=== PATIENT | male | born 1955 | race Caucasian/White ===

== ENCOUNTER 2016-03-25 14:35 | Emergency (ER) | payer SELFPAY ==
[~2016-03-25] VITALS: Ht 188 cm; Wt 90.7 kg
[2016-03-25 15:30] VITALS: BP 125/75
[2016-03-25 16:45] VITALS: BP 139/81
[2016-03-25] MEDS ORDERED: IBUPROFEN600 MG ORAL (16:52)
[2016-03-25 17:05] VITALS: BP 139/81
--- NOTE | 2016-03-25 21:29 | Emergency Room Report ---
History of Present Illness General Chief Complaint: Back Pain-No Injury Source: EMS Present Illness HPI The patient is a 60-year-old male with a history of chronic back pain brought in by ambulance for back pain. The patient states that the pain is an 8/10 dull ache, begins at the mid lower back, and radiates down both legs. The patient also admits to numbness and tingling of both legs. Patient also admits to urinary incontinence. The pt denies any recent injury to the lower back. Pt unsure of diagnosis of the back which is causing the pain. Pt denies N, V, F, chills, SOB, CP Allergies: Coded Allergies: CHLORPHENIRAMINE (Verified Allergy, Unknown, 08/30/15) PENICILLINS (Unverified Allergy, Unknown, 03/25/16) PHENYLPROPANOLAMINE (Verified Allergy, Unknown, 08/30/15) Patient History Past Medical History: see triage record Pertinent Family History: none Reviewed Nursing Documentation: PMH: Agreed, PSxH: Agreed Nursing Documentation-PMH Past Medical History: No Stated History Review of Systems All Other Systems: negative except mentioned in HPI Physical Exam Vital Signs Date Time Temp Pulse Resp B/P Pulse Ox O2 Delivery O2 Flow Rate FiO2 03/25/16 14:32 80 16 135/82 100 Room Air 03/25/16 16:45 97.8 Sp02 EP Interpretation: reviewed, normal General Appearance: no apparent distress, alert, GCS 15, non-toxic Head: normocephalic, atraumatic Eyes: bilateral eye PERRL, bilateral eye normal inspection ENT: hearing grossly normal, normal pharynx, no angioedema, normal voice Musculoskeletal: normal inspection, back normal, digits/nails normal, gait/ station normal, tender - TTP over L mid spine Neurologic: alert, oriented x3, responsive, motor strength/tone normal, sensory intact, speech normal Psychiatric: judgement/insight normal, memory normal, mood/affect normal, no suicidal/homicidal ideation Skin: normal color, no rash, warm/dry, well hydrated Lymphatic: no adenopathy Medical Decision Making PA Attestation Dr. Olson is my supervising physician. Patient management was discussed with my supervising physician Diagnostic Impression: Primary Impression: Chronic back pain ER Course The patient is a 60-year-old male with a history of chronic back pain brought in by ambulance for back pain Ddx considered include but not limited to lumbar strain, degenerative disease, epidural abscess, cauda equina, chronic pain, narcotic dependency. PE: Vitals within normal limits. No apparent distress. Lumbar spine: There is midline tenderness to palpation. No step-offs. Bilateral paraspinal tenderness to palpation. Sensation is intact to sharp sensation. The patient appears to have had urinary incontinence. Slow, but normal gait MRI of the L-spine shows no acute process. The patient is given Motrin and will be discharged home. ER precautions given CT/MRI/US Diagnostic Results CT/MRI/US Diagnostic Results : Imaging Test Ordered: MRI L spine Impression Unremarkable for acute findings. Last Vital Signs Date Time Temp Pulse Resp B/P Pulse Ox O2 Delivery O2 Flow Rate FiO2 03/25/16 17:05 85 20 139/81 99 Room Air 03/25/16 16:45 97.8 Status: improved Disposition: HOME, SELF-CARE Condition: Improved Scripts Ibuprofen* (MOTRIN*) 600 Mg Tablet 600 MG ORAL Q8H Y for For Pain, #30 TAB 0 Refills Prov: EUGENIO TINOCO 03/25/16 Patient Instructions: Back Pain, Adult Additional Instructions: I discussed my findings with the patient. All questions and concerns have been answered. Treatment and medication compliance have been addressed. I advised the patient that they need to follow up with PMD in 3-5 days. Return to ED if pain remains or worsens, numbness or tingling occurs, new rash is noticed, fever is noticed, or if needed for any reason. Patient verbalized understanding of discharge instructions. EUGENIO TINOCO Mar 25, 2016 21:29
--- NOTE | 2016-03-26 12:11 | Diagnostic Imaging Report ---
Indication: Back pain Technique: MRI examination of the Lumbar spine was performed in a 1.5 Kamila magnet. Sequences obtained include sagittal and axial T1 and T2 fast spin echo, and sagittal STIR. No IV gadolinium was given Comparison: none Findings: There is no definite evidence of a fracture or bone marrow contusion. Although heterogeneous bone marrow signal does not show any evidence of a contusion injury or edema. Desiccation of the intervertebral discs noted at multiple locations. Endplate and facet spur formation noted. The distal part of the lower thoracic spinal cord is normal. Conus medullaris is seen at about L1. This L1-2 demonstrates mild disc disease and hypertrophy facets but is otherwise unremarkable. L2-3 demonstrates similar findings and is otherwise unremarkable. L3-4 shows similar findings with moderate hypertrophy of the facets. There is no central stenosis. There is narrowing of the lateral recess and mild foraminal stenosis noted. L4-5 shows mild disc disease and moderate facet arthropathy. There is moderate foraminal stenosis on the right side and mild stenosis on the left side. There is narrowing of the lateral recess and no central stenosis. L5-S1 demonstrates moderate facet arthropathy with narrowing of the lateral recess. There is moderate bilateral neural foraminal stenosis. There is no central stenosis. A small punctate focus of abnormal signal noted along the posterior annulus of the disc consistent with a small fissure. This is associated with a small disc protrusion. Several rounded T2 hyperintense foci noted within both kidneys consistent with cysts. Impression: No evidence of acute injury. Spondylosis as described above. Multiple bilateral renal cysts
== END 2016-03-25 17:20 | disposition home or self-care (01) ==
LOC: EDBD 14:35 → EMR 14:48
DX: G89.29 Other chronic pain (principal); Z88.0 Allergy status to penicillin
CPT/HCPCS: 72148; 99284

== ENCOUNTER 2017-10-04 09:37 | Emergency (ER) | payer MEDICAID ==
[~2017-10-04] VITALS: Ht 190.5 cm; Wt 81.6 kg
[~2017-10-04 09:37] MED LIST: ALBUTEROL2.5 MG/3 M INH; IBUPROFEN600 MG ORAL
[2017-10-04] MEDS ORDERED: Ketorolac 30mg Inj IM ONE (10:00)
[2017-10-04 10:14] VITALS: BP 142/91
--- NOTE | 2017-10-04 10:34 | Emergency Room Report ---
History of Present Illness General Chief Complaint: Pain Source: Patient, EMS Present Illness HPI 61-year-old male presents ED for evaluation. Brought in by EMS from the street. Complaining of pain. States pain is generalized and diffuse. Throbbing, 7 out of 10, nonradiating. Denies any recent injury or trauma. Denies chest pain or shortness of breath. Denies fevers or chills. No other aggravating relieving factors. Denies any other associated symptoms Allergies: Coded Allergies: CHLORPHENIRAMINE (Verified Allergy, Unknown, 08/30/15) PENICILLINS (Unverified Allergy, Unknown, 03/25/16) PHENYLPROPANOLAMINE (Verified Allergy, Unknown, 08/30/15) Patient History Past Medical History: COPD Past Surgical History: none Pertinent Family History: none Social History: Denies: smoking, alcohol use, drug use Immunizations: UTD Reviewed Nursing Documentation: PMH: Agreed; PSxH: Agreed Nursing Documentation-PMH Past Medical History: No History, Except For Hx COPD: Yes Review of Systems All Other Systems: negative except mentioned in HPI Physical Exam Vital Signs Date Time Temp Pulse Resp B/P (MAP) Pulse Ox O2 Delivery O2 Flow Rate FiO2 10/04/17 09:19 97.6 88 16 142/91 100 Room Air 97.5 Sp02 EP Interpretation: reviewed, normal General Appearance: no apparent distress, alert, GCS 15, non-toxic Head: normocephalic, atraumatic Eyes: bilateral eye normal inspection, bilateral eye PERRL ENT: hearing grossly normal, normal pharynx, no angioedema, normal voice Neck: full range of motion, supple/symm/no masses Respiratory: chest non-tender, lungs clear, normal breath sounds, speaking full sentences Cardiovascular #1: regular rate, rhythm, no edema Cardiovascular #2: 2+ carotid (R), 2+ carotid (L), 2+ radial (R), 2+ radial (L) , 2+ dorsalis pedis (R), 2+ dorsalis pedis (L) Gastrointestinal: normal bowel sounds, non tender, soft, non-distended, no guarding, no rebound Rectal: deferred Genitourinary: normal inspection, no CVA tenderness Musculoskeletal: back normal, gait/station normal, normal range of motion, non- tender Neurologic: alert, oriented x3, responsive, motor strength/tone normal, sensory intact, speech normal Psychiatric: judgement/insight normal, memory normal, mood/affect normal, no suicidal/homicidal ideation Reflexes: 3+ bicep (R), 3+ bicep (L), 3+ tricep (R), 3+ tricep (L), 3+ knee (R) , 3+ knee (L) Skin: normal color, no rash, warm/dry, well hydrated Lymphatic: no adenopathy Medical Decision Making Diagnostic Impression: Primary Impression: Chronic back pain Qualified Codes: M54.5 - Low back pain; G89.29 - Other chronic pain ER Course Hospital Course 61-year-old male presents ED complaining of lower back pain. No evidence of trauma Differential diagnoses include: pyelonephritis, kidney stone, muscle strain, Lspine fracture Clinical course Patient placed on stretcher. After initial history and physical I reviewed EMR. Patient seen here previously for similar chronic back pain. Had an MRI done which was unremarkable. No focal neurological deficits. No signs of step-off or deformity. Pain is likely chronic. I gave Toradol here and on reassessment pain improved Patient safe for discharge but we will provide transport to assist patient back to his board and care as patient uses a walker with a chronic unsteady gait Diagnosis - chronic back pain Stable and discharged to home with prescription for motrin. Followup with PMD. Return to ED if symptoms recur or worsen Last Vital Signs Date Time Temp Pulse Resp B/P (MAP) Pulse Ox O2 Delivery O2 Flow Rate FiO2 10/04/17 10:14 97.5 16 142/91 100 Room Air 97.5 10/04/17 09:19 88 Status: improved Disposition: HOME, SELF-CARE Condition: Stable Scripts Ibuprofen* (MOTRIN*) 600 Mg Tablet 600 MG ORAL Q8H PRN for For Pain, #30 TAB 0 Refills Prov: Chriss Quach MD 10/04/17 Chriss Quach MD Oct 04, 2017 10:34
[2017-10-04] MEDS ORDERED: IBUPROFEN600 MG ORAL (12:54)
[2017-10-04 14:59] VITALS: BP 143/95
== END 2017-10-04 14:59 | disposition home or self-care (01) ==
LOC: EDBD 09:37 → EMR 11:00
DX: M54.5 Low back pain (principal); G89.29 Other chronic pain; J44.9 Chronic obstructive pulmonary disease, unspecified; Z88.0 Allergy status to penicillin; Z88.8 Allergy status to other drugs, medicaments and biological substances
CPT/HCPCS: 96372; 99283; J1885